=== PATIENT | female | born 1960 | race Caucasian/White ===

== ENCOUNTER 2017-07-12 06:05 | Day surgery (SDC) | payer BC ==
--- NOTE | 2017-07-05 17:11 | HP ---
CC: Dr. Hazel * PREOPERATIVE HISTORY AND PHYSICAL: DATE OF ADMISSION: 07/12/17 This patient is scheduled for same-day surgery admission by Dr. Kellogg on 07/12/17. DATE OF PREOPERATIVE HISTORY AND PHYSICAL EXAMINATION: 07/05/17. ATTENDING SURGEON: Dr. Ej Kellogg * (dictated by Leeann Rowan NP) CHIEF COMPLAINT: Anorectal fistula. HISTORY OF PRESENT ILLNESS: The patient is a 57-year-old morbidly obese female , who has had several office visits for perianal pain associated with sullivan drainage. She has a history of external hemorrhoids and has been seen by Dr. Méndez about a year ago and reports that she had a colonoscopy within normal limits. She has not had any blood per rectum or fevers or chills. She denies any diarrhea or constipation. On physical exam, Dr. Kellogg noted perianal swelling at about the 10 o'clock position with sullivan colored drainage; there was a small fistula sinus tract identified 2 to 3 cm from the anal verge. Dr. Kellogg has recommended an exam under anesthesia, seton placement, and possible fistulotomy as a same-day surgery procedure. He described the nature of the procedure, the rationale for the procedure, the relevant risks and benefits, and today, I reviewed the typical postoperative care and recovery. The patient has had a chance to ask questions and stated that she understands the information and is satisfied with the answers given to her questions. She will sign surgical consent on the day of surgery. PAST MEDICAL HISTORY: Significant for morbid obesity, hypertension, and prediabetes. PAST SURGICAL HISTORY: Tubal ligation in 2000 and hemorrhoidectomy in 2001. MEDICATIONS: 1. Amlodipine 5 mg p.o. daily. 2. Hydrochlorothiazide 25 mg p.o. daily. 3. Enalapril 20 mg p.o. b.i.d. 4. Metformin 500 mg p.o. daily in the evening and she will hold that on the day before surgery. ALLERGIES: ATENOLOL caused shortness of breath. FAMILY HISTORY: Mother , age 76, with a history of stroke. Father , age 55, with history of myocardial infarction. No known anorectal or colorectal conditions in the family. No known anesthesia complications, bleeding tendencies, or clotting disorder. SOCIAL HISTORY: She lives with her daughter and is self-employed; she has never been a smoker. She denies the use of alcohol or other substances. REVIEW OF SYSTEMS: Constitutional: No fever, chills, or excessive fatigue. Endocrine: Recently primary care physician told her that her glucose was elevated and she was started on metformin; she does not check fingerstick glucose at home. She denies any thyroid disease. Hematologic: No easy bruising or bleeding. No previous blood transfusions. Respiratory: No dyspnea on exertion or chronic cough. Cardiovascular: No anginal chest pain or palpitations. Gastrointestinal: As described in history of present illness. Genitourinary: No dysuria. Musculoskeletal: No complaints of joint or back pain. Neurologic: No headache or blurred vision or areas of focal weakness or numbness. General: No history of deep vein thrombosis or pulmonary embolism. No history of anesthesia complications. PHYSICAL EXAMINATION GENERAL SURVEY: The patient is a 57-year-old female with severe morbid obesity. VITAL SIGNS: Height 63 inches, weight 353 pounds, body mass index 62.5. Blood pressure 136/92, pulse 78 and regular, respiratory rate 18, temperature 99.3. HEENT: Benign. NECK: Supple. No cervical lymphadenopathy. BACK: No CVA tenderness. LUNGS: Breath sounds bilaterally clear and equal. HEART: Regular rate and rhythm. No murmurs or rubs appreciated. ABDOMEN: Active bowel sounds. Massively obese, soft, nondistended, nontender throughout. No obvious masses or organomegaly, but exam is limited by body habitus. PELVIC: Exam deferred. RECTAL: Exam done by Dr. Kellogg. At the 10 o'clock position, there is a swelling approximately 2 to 3 cm from the anal verge, small sinus identified and metal probe placed with some brownish discharge, fistula tracking to anus, but probe advanced only 1 to 2 cm. Digital rectal exam identified no cord. EXTREMITIES: Warm without skin ulcerations. NEUROLOGIC: Alert and oriented x3. Steady gait. SKIN: Fungal-appearing rash under both breasts and under the pannus. IMPRESSION: Anorectal fistula. PLAN: Same-day surgery admission to Dr. Kellogg's service on 07/12/17 , for examination under anesthesia with seton placement and possible fistulotomy. UMA ROWAN, MAILING MACHINE HELPER [id number]/[facility] #: [id number] [place]
[~2017-07-12 06:05] MED LIST: Buffered Lidocaine 0.9% SYRIN* 5 ML/SYR SYRINGE INTRADERM ONE; Famotidine IV* 10 MG/ML 2 ML (20 mg) IV ONE; Metoclopramide IV* 5 MG/ML 2 ML VIAL IV SLOW PU ONE; Scopolamine 1.5 mg* PATCH TRANSDERM ONE
[2017-07-12] MEDS ORDERED: Buffered Lidocaine 0.9% SYRIN* 5 ML/SYR SYRINGE ONE (06:19)
[2017-07-12] MEDS ORDERED: ceFAZolin 2 GM PREMIX (*) 2 GM/50 ML BAG IVPB ONE (06:19)
[2017-07-12] MEDS ORDERED: Metoclopramide IV* 5 MG/ML 2 ML VIAL ONE (06:19)
[2017-07-12] MEDS ORDERED: ceFAZolin 1 GM in Dextrose (*) 1 GM/50 ML BAG IVPB ONE (06:19)
[2017-07-12] MEDS ORDERED: Scopolamine 1.5 mg* PATCH ONE (06:19)
[2017-07-12] MEDS ORDERED: Methylene Blue 0.5 %* 50 MG/10 ML AMP IV ONE (06:43)
[2017-07-12] MEDS ORDERED: Gelfoam Sponge SIZE 100* SPONGE ONE (06:44)
[2017-07-12] MEDS ORDERED: Bupivacaine 0.25% SDV* 30 ML ONE (06:44)
[2017-07-12] MEDS ORDERED: Famotidine TAB* 20 MG ONE (07:00)
[2017-07-12] MEDS ORDERED: fentaNYL* 50 MCG/ML 2 ML VIAL (100 MCG VIAL) ONE (07:28)
[2017-07-12] MEDS ORDERED: Midazolam* 1 MG/ML 2 ML VIAL (2 MG) ONE (07:28)
[2017-07-12] MEDS ORDERED: Lidocaine 2% PF * 5 ML VIAL ONE (07:32)
[2017-07-12] MEDS ORDERED: Propofol* 10 MG/ML 20 ML BTL IV PUSH ONE (07:32)
[2017-07-12] MEDS ORDERED: Naloxone* 0.4 MG/ML 1 ML VIAL IV PRN (07:48)
[2017-07-12] MEDS ORDERED: DiMENhydriNATE IV* 50 MG/ML VIAL IV PUSH PRN (07:48)
[2017-07-12] MEDS ORDERED: fentaNYL* 50 MCG/ML 2 ML VIAL (100 MCG VIAL) IV PRN (07:48)
[2017-07-12] MEDS ORDERED: Ondansetron INJ* 2 MG/ML VIAL IV PRN (07:48)
[2017-07-12] MEDS ORDERED: Ketorolac INJ* 30 MG/ML 1 ML VIAL IV PRN (07:48)
[2017-07-12] MEDS ORDERED: Lidocaine 1% MPF wEPI 200,000* 30 ML SDV ONE (08:04)
[2017-07-12] MEDS ORDERED: Surgical Lubricant STERILE* 120 GM TOP.GEL ONE (08:05)
--- NOTE | 2017-07-12 09:18 | OP ---
Operative Report - Detailed - Operation Details Date of Operation: 07/12/17 Surgeon(s): NEELAM Anesthesiologist(s): MICHEAL Anesthesia: GENERAL Pre-Op Diagnosis: FISTULA IN ANO Post-Op Diagnosis: FISTULA IN ANO Estimated Blood Loss: MINIMAL IV Fluids: LR Specimen(s)/Culture(s) Description: NONE Drains: SETON (VESSEL LOOP) Findings: DICTATED
[2017-07-12 09:26] VITALS: BP 128/89
--- NOTE | 2017-07-12 18:04 | OP ---
CC: Clinton Hazel MD * DATE OF OPERATION: 07/12/17 - [facility] DATE OF : 64 SURGEON: Ej Kellogg MD ELECTRONICS RECYCLER: None ANESTHESIOLOGIST: Dr. Bartlett ANESTHESIA: General endotracheal PRE-OP DIAGNOSIS: [id number] POST-OP DIAGNOSIS: [id number] OPERATIVE PROCEDURE: Examination under anesthesia with partial fistulotomy and Seton placement. ESTIMATED BLOOD LOSS: Minimal. IV FLUIDS: Crystalloid. SPECIMEN: None. DRAINS: None. COMPLICATIONS: None. COUNTS: The instrument, needle and sponge counts were correct. DESCRIPTION OF PROCEDURE: The patient was brought to the operating room and placed on the table supine. Sequential compression devices were placed on both lower extremities. General anesthesia was administered. The patient was positioned in lithotomy and perineum prepped and draped in the usual sterile fashion. A time-out was performed. Digital rectal examination was performed and there were no masses palpated. I then identified the external opening of the fistula. Anal retractors were placed and 18- gauge Angiocath was used to intubate the external opening, and under direct visualization internally, hydrogen peroxide was injected through the fistulous tract and this was visualized exiting at the dentate line at 4 o' clock, which corresponded to the secondary opening. A probe was used to intubate the fistula tract and easily pass through the primary opening and then the overlying mucosa was incised and fistula appeared to be approximately 2 to 3 cm long. Hemorrhoidal vessels were encountered and these were ligated with 4- 0 absorbable ties and divided. 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 I opted to place a Seton using a blue vessel loop. This was used to encircle the remaining tissue and tighten down by tying the loop to itself with a 0 silk tie. This was then shortened and the procedure was concluded. She was awakened and transferred to the recovery room in stable condition. [id number]/[facility] #: [id number] [facility]
[2017-07-15] MEDS ORDERED: Scopolamine PATCH Remove* 1 NOTE MISC PATCH OFF ONE (06:00)
== END 2017-07-12 09:55 | disposition home or self-care (01) ==
LOC: OR 06:05
PROVIDERS: ATTEND Surgery
DX: K60.5 Anorectal fistula (principal); E11.9 Type 2 diabetes mellitus without complications; Z79.84 Long term (current) use of oral hypoglycemic drugs; I10 Essential (primary) hypertension; E78.4 Other hyperlipidemia; E66.01 Morbid (severe) obesity due to excess calories
CPT/HCPCS: A9270-GY; J0690; J2001; J2250; J2704; J2765; J3010